=== PATIENT | female | born 1935 | race Caucasian/White ===

== ENCOUNTER 2024-05-09 07:52 | Day surgery (SDC) | payer MEDICARE, BC ==
--- NOTE | 2024-05-08 09:58 | HP ---
HISTORY OF PRESENT ILLNESS: The patient is an 88-year-old female with complaints of a lesion on the left oriental orthodox of 1.5 cm. It is pink and slightly ulcerated. PAST MEDICAL HISTORY: Hypertension, hyperlipidemia, GERD, asthma, history of skin cancer, TIA, arthritis. HOME MEDICATIONS: Albuterol, clonidine, tizanidine, gabapentin, iron, lorazepam, losartan, metoprolol, magnesium, simvastatin, vitamin D. ALLERGIES: None. PAST SURGICAL HISTORY: Hip replacement, knee arthroplasty. SOCIAL HISTORY: None. FAMILY HISTORY: None. REVIEW OF SYSTEMS: CONSTITUTIONAL: Denies fever or chills. CHEST: Denies shortness of breath. CARDIOVASCULAR: Denies chest pain. ABDOMEN: Denies abdominal pain. PHYSICAL EXAMINATION: GENERAL: No acute distress. CARDIOVASCULAR: Regular rate and rhythm. RESPIRATORY: Nonlabored. No shortness of breath. ABDOMEN: Soft. SKIN: Left oriental orthodox with 1.5 cm painful ulcerated lesion. ASSESSMENT: Lesion of the left oriental orthodox. PLAN: Excision with possible split-thickness skin graft or closure with Dr. Lenny Martino. This report was dictated for Dr. Martino by Denia Brown NP.
[2024-05-09] MEDS ORDERED: CEFAZOLIN 2 GM/100 ML NaCl 2 GM/100 ML IVPB IV SCH (08:15)
[2024-05-09] MEDS ORDERED: Lactated Ringers 1,000 ML IV SCH (08:30)
== END 2024-05-09 09:24 | disposition home or self-care (01) ==
LOC: SDC 07:52
PROVIDERS: ATTEND Surgery
DX: Z53.8 Procedure and treatment not carried out for other reasons (principal)

== ENCOUNTER 2024-05-23 08:51 | Day surgery (SDC) | payer MEDICARE, BC ==
[~2024-05-23 08:51] MED LIST: Lactated Ringers 1,000 ML IV ONE; MINERAL OIL LIGHT 10 ML FOR SURGERY ONE; Sensorcaine 0.25% 10 ML ONE
[2024-05-23] MEDS ORDERED: Lactated Ringers 1,000 ML IV ONE (09:18)
[2024-05-23] MEDS: Lactated Ringers 1,000 ML IV SCH (09:22)
[2024-05-23] MEDS ORDERED: CEFAZOLIN 2 GM/100 ML NaCl 2 GM/100 ML IVPB IV ONE (09:23)
[2024-05-23] MEDS: CEFAZOLIN 2 GM/100 ML NaCl 2 GM/100 ML IVPB IV SCH (09:23)
[2024-05-23] MEDS ORDERED: propofoL IV ONE (10:46)
[2024-05-23] MEDS ORDERED: Xylocaine-Mpf 2% 5 Ml Vial ONE (10:46)
[2024-05-23] MEDS ORDERED: SUBLIMAZE 100 MCG/2 ML ONE (10:46)
[2024-05-23] MEDS ORDERED: dexAMETHasone sodium phosphate ONE (10:46)
[2024-05-23] MEDS ORDERED: Zofran 4 MG/2 ML VIAL ONE (10:46)
[2024-05-23 12:14] VITALS: PULSE 83; RESP 16; TEMP 96.8
[2024-05-23 12:22] VITALS: BP 169/69; O2SAT 95
--- NOTE | 2024-05-24 09:42 | OP ---
SURGERY DATE/TIME: 05/23/2024 [id number] PREOPERATIVE DIAGNOSES: Excision of left taoism skin lesion. POSTOPERATIVE DIAGNOSES: Excision of left taoism skin lesion. PROCEDURE: 1) 1 cm left taoism excision and closure. 2) Left eyebrow 1 cm excision and closure. SURGEON: Lenny Martino MD ANESTHESIA: General with local. COMPLICATIONS: None. CONDITION: Stable. INDICATIONS: An 88-year-old female with 2 skin lesions on the left side of the face. DESCRIPTION OF PROCEDURE AND FINDINGS: Basically general anesthetic. Routine prep and drape, 1% lidocaine. Elliptical incision of these 2 lesions. They were about both 1 cm, and they were both elliptically incised 2 cm. These were closed with 4-0 Vicryl. Sterile ointment applied. Findings discussed with his son in the waiting room.
== END 2024-05-23 12:29 | disposition home or self-care (01) ==
LOC: SDC 08:51
PROVIDERS: ATTEND Surgery
DX: D17.0 Benign lipomatous neoplasm of skin and subcutaneous tissue of head, face and neck (principal); Z85.828 Personal history of other malignant neoplasm of skin; I10 Essential (primary) hypertension
CPT/HCPCS: 88305; 93005; 99100; J0690; J1100; J2405; J2704; J3010; A9270-GY